=== PATIENT | male | born 1990 | race African-American/Black ===

== ENCOUNTER 2018-05-16 11:38 | Emergency (ER) | payer OTHER ==
[~2018-05-16] VITALS: Ht 162.6 cm; Wt 90.7 kg
[2018-05-16 12:04] VITALS: BP 116/73
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
== END 2018-05-16 13:51 | disposition home or self-care (01) ==
LOC: ER 11:38
DX: M25.561 Pain in right knee (principal); M25.571 Pain in right ankle and joints of right foot; M25.512 Pain in left shoulder; V44.5XXA Car driver injured in collision with heavy transport vehicle or bus in traffic accident, initial encounter; Y93.89 Activity, other specified; Y92.410 Unspecified street and highway as the place of occurrence of the external cause; Y99.8 Other external cause status
CPT/HCPCS: 73030; 73562; 73610; 99284

== ENCOUNTER 2018-05-29 14:53 | Emergency (ER) | payer OTHER ==
[~2018-05-29] VITALS: Ht 162.6 cm; Wt 95.3 kg
[2018-05-29 16:03] VITALS: BP 122/70
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
== END 2018-05-29 16:30 | disposition left against medical advice (07) ==
LOC: ER 14:53
DX: S13.4XXA Sprain of ligaments of cervical spine, initial encounter (principal); M25.512 Pain in left shoulder; V43.52XA Car driver injured in collision with other type car in traffic accident, initial encounter; Y93.89 Activity, other specified; Y92.410 Unspecified street and highway as the place of occurrence of the external cause; Y99.8 Other external cause status
CPT/HCPCS: 99281

== ENCOUNTER 2018-06-04 18:12 | Emergency (ER) | payer OTHER ==
[~2018-06-04] VITALS: Ht 162.6 cm; Wt 104.3 kg
[2018-06-04 18:55] VITALS: BP 137/84
[2018-06-04] MEDS: METHOCARBAMOL 500 MG TABLET PO ONE (19:58)
[2018-06-04] MEDS: predniSONE 10 MG TABLET PO ONE (19:58)
[2018-06-04] MEDS ORDERED: METH-37 PO (21:32)
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
[2018-06-04] MEDS ORDERED: METH4TAB2 PO (21:39)
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
--- NOTE | 2018-06-05 07:22 | EKG ---
[facility] [address] [place] [address] Test Date: 2018-06-04 Test Time: 20:03:53 Pat Name: MATILDE HAYNES Department: Room: Gender: M Title I Instructional Assistant: : 1990 Requested By: ROBE VERDE Order Number: [id number] Reading MD: Hadley Gunter MD Measurements Intervals [place] Rate: 63 P: 29 NV: 212 QRS: 52 QRSD: 88 T: 15 QT: 354 QTc: 365 Interpretive Statements SINUS RHYTHM Electronically Signed On 06-07-2018 11:51:46 CDT by Hadley Gunter MD
== END 2018-06-04 21:40 | disposition home or self-care (01) ==
LOC: ER 18:12
DX: S29.011A Strain of muscle and tendon of front wall of thorax, initial encounter (principal); S16.1XXA Strain of muscle, fascia and tendon at neck level, initial encounter; V49.9XXA Car occupant (driver) (passenger) injured in unspecified traffic accident, initial encounter; Y93.89 Activity, other specified; Y92.89 Other specified places as the place of occurrence of the external cause; Y99.8 Other external cause status
CPT/HCPCS: 71046; 93005; 99284; J7512

== ENCOUNTER 2019-08-07 16:32 | Emergency (ER) | payer OTHER ==
[~2019-08-07] VITALS: Ht 162.6 cm; Wt 104.3 kg
[~2019-08-07 16:32] MED LIST: METH-37 PO; METH4TAB2 PO
[2019-08-07] MEDS ORDERED: PIPERACILLIN/TAZOBACTAM 3.375 GM in IV NORMAL SALINE 50ML 50 ML IV ONE (17:00)
[2019-08-07] MEDS ORDERED: IV NORMAL SALINE 1000ML BAG 1,000 ML IV ONE ×2 (17:00→19:00)
[2019-08-07 17:07] LABS: BASO # 0.1 x10^3/uL (0.0-0.2); BASO % 1 % (0-3); EOS % 0 % (0-3); HEMATOCRIT 45.3 % (39.0-53.0); HEMOGLOBIN 15.2 g/dL (13.0-17.5); LYMPH # 1.3 x10^3/uL (1.0-4.8); LYMPH % 13 % (24-48); MEAN CORPUSCULAR HEMOGLOBIN 29 pg (25-35); MEAN CORPUSCULAR HGB CONC 34 g/dL (31-37); MEAN CORPUSCULAR VOLUME 85 fL (79-100); MONO # 0.7 x10^3/uL (0.0-1.1); MONO % 7 % (0-9); NEUT # 7.7 x10^3/uL (1.8-7.7); NEUT % 79 % (31-73); PLATELET COUNT 313 x10^3/uL (140-400); RED BLOOD COUNT 5.34 x10^6/uL (4.30-5.70); RED CELL DISTRIBUTION WIDTH 13.1 % (11.5-14.5); WHITE BLOOD COUNT 9.8 x10^3/uL (4.0-11.0)
[2019-08-07 17:15] LABS: CALCIUM 9.3 mg/dL (8.5-10.1); CREATININE 1.1 mg/dL (0.7-1.3); GFR 94.5
[2019-08-07 17:20] LABS: ALBUMIN 3.8 g/dL (3.4-5.0); ALBUMIN/GLOBULIN RATIO 0.8 (1.0-1.7); TOTAL BILIRUBIN 0.6 mg/dL (0.2-1.0); TOTAL PROTEIN 8.6 g/dL (6.4-8.2)
--- NOTE | 2019-08-07 17:23 | PHYS DOC ---
Past Medical History Past Medical History: No Pertinent History Past Surgical History: No Surgical History Alcohol Use: None Drug Use: None Adult General Chief Complaint Chief Complaint: HEMORRHOIDS HPI HPI Patient is a 29 year old M who reports pain around his rectum for the last 2 weeks that has become much worse today. He denies history of hemorrhoids or perirectal abscess. He denies injury. He does feel like he is having trouble having a BM because of swelling and pain. Review of Systems Review of Systems Constitutional: Denies fever or chills [] Eyes: Denies change in visual acuity, redness, or eye pain [] HENT: Denies nasal congestion or sore throat [] Respiratory: Denies cough or shortness of breath [] Cardiovascular: No additional information not addressed in HPI [] GI: Denies abdominal pain, nausea, vomiting. Difficulty passing BM, Rectal pain : Denies dysuria or hematuria [] Musculoskeletal: Denies back pain or joint pain [] Integument: Denies rash or skin lesions. Swollen area around anus. Neurologic: Denies headache, focal weakness or sensory changes [] Endocrine: Denies polyuria or polydipsia [] All other systems were reviewed and found to be within normal limits, except as documented in this note. Current Medications Current Medications Current Medications Medications (Trade) Dose Ordered Sig/Rashaun Start Time Stop Time Status Last Admin Dose Admin Iohexol (Omnipaque 300 Mg/ml) 75 ml 1X ONCE 08/07/19 18:00 08/07/19 18:01 DC 08/07/19 18:28 75 ML Morphine Sulfate (Morphine Sulfate) 4 mg 1X ONCE 08/07/19 18:30 08/07/19 18:35 DC 08/07/19 18:55 4 MG Ondansetron HCl (Zofran) 4 mg 1X ONCE 08/07/19 18:30 08/07/19 18:35 DC 08/07/19 18:55 4 MG Piperacillin Sod/ Tazobactam Sod 3.375 gm/Sodium Chloride 50 ml @ 100 mls/hr 1X ONCE 08/07/19 17:00 08/07/19 17:29 DC 08/07/19 17:19 100 MLS/HR Sodium Chloride 1,000 ml @ 1,000 mls/hr 1X ONCE 08/07/19 19:00 08/07/19 19:46 DC 08/07/19 18:53 1,000 MLS/HR Allergies Allergies Allergies Coded Allergies Type Severity Reaction Last Updated Verified No Known Drug Allergies 12/31/14 No Physical Exam Physical Exam Constitutional: Well developed, well nourished, no acute distress, non-toxic appearance. [] HENT: Normocephalic, atraumatic, bilateral external ears normal, oropharynx moist, no oral exudates, nose normal. [] Eyes: PERRLA, EOMI, conjunctiva normal, no discharge. [] Neck: Normal range of motion, no tenderness, supple, no stridor. [] Cardiovascular:Heart rate regular rhythm, no murmur [] Lungs & Thorax: Bilateral breath sounds clear to auscultation [] Abdomen: Bowel sounds normal, soft, no tenderness, no masses, no pulsatile masses. [] Skin: Indurated painful area at 7 Oclock of anal ring. No drainage or pustule noted. Back: No tenderness, no CVA tenderness. [] Extremities: No tenderness, no cyanosis, no clubbing, ROM intact, no edema. [] Neurologic: Alert and oriented X 3, normal motor function, normal sensory function, no focal deficits noted. [] Psychologic: Affect normal, judgement normal, mood normal. [] Current Patient Data Vital Signs Vital Signs Date Time Temp Pulse Resp B/P (MAP) Pulse Ox O2 Delivery O2 Flow Rate FiO2 08/07/19 19:30 110 16 99 08/07/19 18:55 Room Air 08/07/19 18:34 141/99 (113) 08/07/19 16:51 98.7 98.7 Lab Values Laboratory Tests Test 08/07/19 16:58 White Blood Count 9.8 x10^3/uL (4.0-11.0) Red Blood Count 5.34 x10^6/uL (4.30-5.70) Hemoglobin 15.2 g/dL (13.0-17.5) Hematocrit 45.3 % (39.0-53.0) Mean Corpuscular Volume 85 fL (79-100) Mean Corpuscular Hemoglobin 29 pg (25-35) Mean Corpuscular Hemoglobin Concent 34 g/dL (31-37) Red Cell Distribution Width 13.1 % (11.5-14.5) Platelet Count 313 x10^3/uL (140-400) Neutrophils (%) (Auto) 79 % (31-73) H Lymphocytes (%) (Auto) 13 % (24-48) L Monocytes (%) (Auto) 7 % (0-9) Eosinophils (%) (Auto) 0 % (0-3) Basophils (%) (Auto) 1 % (0-3) Neutrophils # (Auto) 7.7 x10^3/uL (1.8-7.7) Lymphocytes # (Auto) 1.3 x10^3/uL (1.0-4.8) Monocytes # (Auto) 0.7 x10^3/uL (0.0-1.1) Eosinophils # (Auto) 0.0 x10^3/uL (0.0-0.7) Basophils # (Auto) 0.1 x10^3/uL (0.0-0.2) Sodium Level 141 mmol/L (136-145) Potassium Level 4.0 mmol/L (3.5-5.1) Chloride Level 102 mmol/L (98-107) Carbon Dioxide Level 27 mmol/L (21-32) Anion Gap 12 (6-14) Blood Urea Nitrogen 13 mg/dL (8-26) Creatinine 1.1 mg/dL (0.7-1.3) Estimated GFR (Cockcroft-Gault) 94.5 BUN/Creatinine Ratio 12 (6-20) Glucose Level 115 mg/dL (70-99) H Calcium Level 9.3 mg/dL (8.5-10.1) Total Bilirubin 0.6 mg/dL (0.2-1.0) Aspartate Amino Transferase (AST) 16 U/L (15-37) Alanine Aminotransferase (ALT) 25 U/L (16-63) Alkaline Phosphatase 79 U/L (46-116) Total Protein 8.6 g/dL (6.4-8.2) H Albumin 3.8 g/dL (3.4-5.0) Albumin/Globulin Ratio 0.8 (1.0-1.7) L Laboratory Tests 08/07/19 16:58 Laboratory Tests 08/07/19 16:58 EKG EKG [] Radiology/Procedures Radiology/Procedures [] Course & Med Decision Making Course & Med Decision Making Pertinent Labs and Imaging studies reviewed. (See chart for details) Labs and vitals reassuring. CT shows small perianal abscess. On exam the area is indurated and do not expect we would illicit drainage at this time. Discussed this with pt and he is happy with plan of trying warm soapy soaks, antibiotics and close f/u with PCP or general surgery if symptoms worsen or don't improve. Jose Juan canchola provided for Dr. Roberts. Holley Disclaimer Holley Disclaimer This electronic medical record was generated, in whole or in part, using a voice recognition dictation system. Departure Departure Impression: Primary Impression: Perianal abscess Disposition: HOME, SELF-CARE Condition: IMPROVED Referrals: NO PCP (PCP) GALLITO ROBERTS MD Patient Instructions: Abscess, Perineal Additional Instructions: Soak the area in warm soapy water, either bathtub or hold warm soapy hot wash cloth to area. Scripts Docusate Sodium (COLACE) 100 Mg Capsule 1 CAP PO BID for 7 Days, #14 CAP 0 Refills Prov: VERONICA HERNANDES 08/07/19 Cephalexin (KEFLEX) 500 Mg Capsule 1 CAP PO TID for 10 Days, #30 CAP 0 Refills Prov: VERONICA HERNANDES 08/07/19 Hydrocodone/Apap 5-325 (NORCO 5-325 TABLET) 1 Each Tablet 1-2 TAB PO Q4-6HRS PRN for PAIN, #15 TAB Prov: VERONICA HERNANDES 08/07/19 Sulfamethoxazole/Trimethoprim (BACTRIM DS TABLET) 1 Each Tablet 1 TAB PO BID for 10 Days, #20 TAB 0 Refills Prov: VERONICA HERNANDES 08/07/19 VERONICA HERNANDES Aug 07, 2019 17:23
[2019-08-07] MEDS ORDERED: IOHEXOL 300 MG/ML 100ML VIAL. IV ONE (18:00)
[2019-08-07] MEDS ORDERED: ONDANSETRON PF 4 MG/2 ML VIAL. IV ONE (18:30)
[2019-08-07] MEDS ORDERED: MORPHINE SULFATE 4 MG/ML VIAL. IV ONE (18:30)
[2019-08-07 18:34] VITALS: BP 141/99
--- NOTE | 2019-08-07 18:48 | RAD ---
CT abdomen and pelvis with contrast 08/07/2019. Reason for exam: Perirectal pain and induration. Possible abscess. CT images were performed through the abdomen and pelvis using an infusion of 75 mL Omnipaque 300. No oral contrast was given. Exposure: One or more of the following individualized dose reduction techniques were utilized for this examination: 1. Automated exposure control 2. Adjustment of the mA and/or kV according to patient size 3. Use of iterative reconstruction technique. FINDINGS: The lung bases are clear. The liver and spleen are homogeneous in density and normal in configuration. Both kidneys enhance with contrast. No mass or obstruction is seen. The adrenal glands are not enlarged. The pancreas appears normal. No dominant soft tissue mass or inflammatory process is seen. A normal appendix is shown arising from the cecum. Images through the pelvis show no abnormality of the distal ureters or bladder. No pelvic or inguinal adenopathy is seen. There is a borderline enlarged left inguinal lymph node. There is no separate pelvic mass. There is a low-attenuation area near the region of the anus and more toward the left side, and there is surrounding soft tissue thickening. This may indicate a small perianal abscess. This measures roughly 1.8 cm AP, 1.3 cm mediolaterally, and 1.6 cm craniocaudally. IMPRESSION: Findings suggest small perianal abscess. No acute normality is seen within the abdomen or pelvis. Electronically signed by: Josh Child Jr., MD (08/07/2019 6:45 PM) [id number]
[2019-08-07] MEDS ORDERED: DOCU-109 PO (19:02)
[2019-08-07] MEDS ORDERED: CEPH-264 PO (19:02)
[2019-08-07] MEDS ORDERED: SULF1TAB24 PO (19:02)
[2019-08-07] MEDS ORDERED: HYDR-3164 PO (19:02)
== END 2019-08-07 19:37 | disposition home or self-care (01) ==
LOC: ER 16:32
DX: K61.0 Anal abscess (principal); R60.9 Edema, unspecified; Z79.899 Other long term (current) drug therapy
CPT/HCPCS: 36415; 74177; 80053; 85025; 96365; 96375; 99285; J2270; J2405; J2543; J7030; Q9967

== ENCOUNTER 2019-10-01 11:15 | Emergency (ER) | payer OTHER ==
[~2019-10-01] VITALS: Ht 162.6 cm; Wt 97.7 kg
[~2019-10-01 11:15] MED LIST changes: +CEPH-264 PO; +DOCU-109 PO; +HYDR-3164 PO; +SULF1TAB24 PO
[2019-10-01 11:35] VITALS: BP 144/102
[2019-10-01] MEDS ORDERED: KETOROLAC TROMETHAMINE 10 MG TABLET PO STA (11:42)
[2019-10-01] MEDS ORDERED: ORPH100T PO (11:51)
[2019-10-01] MEDS ORDERED: IBUP-1027 PO (11:51)
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
== END 2019-10-01 12:01 | disposition home or self-care (01) ==
LOC: ER 11:15
DX: M25.512 Pain in left shoulder (principal); G89.11 Acute pain due to trauma; V59.49XA Driver of pick-up truck or van injured in collision with other motor vehicles in traffic accident, initial encounter; Y92.488 Other paved roadways as the place of occurrence of the external cause; Y93.89 Activity, other specified; Y99.8 Other external cause status
CPT/HCPCS: 99283